=== PATIENT | female | born 1960 | race Hispanic/Latino ===

== ENCOUNTER 2020-09-01 22:58 | Inpatient (IN) | payer OTHER ==
[~2020-09-01] VITALS: Ht 160 cm; Wt 73.6 kg
[2020-09-02] VITALS (10 sets, daily range): BP systolic 87–140; BP diastolic 45–85
[2020-09-02] MEDS: METRONIDAZOLE 500 MG TAB PO SCH ×4 (00:37→17:35)
[2020-09-02] MEDS: SODIUM CHLORIDE 0.45% 1,000 ML IV SCH ×2 (00:37→14:33)
[2020-09-02] MEDS ORDERED: ACETAMINOPHEN 325 MG TAB PO PRN (03:00)
[2020-09-02] MEDS ORDERED: LEVOTHYROXINE100 MC1 PO (04:54)
[2020-09-02] MEDS ORDERED: GLIPIZIDE5 MG PO (04:54)
[2020-09-02] MEDS ORDERED: METFORMIN HCL1000 MG PO (04:54)
[2020-09-02 05:12] LABS: BASOPHILS # (AUTO) 0.1 (0.0-0.1); BASOPHILS % 0.7 % (0.0-1.0); EOSINOPHILS # (AUTO) 0.1 (0.0-0.4); EOSINOPHILS % 0.5 % (0.0-6.0); HEMATOCRIT 41.8 % (34.2-44.1); HEMOGLOBIN 13.9 g/dL (12.0-16.0); LYMPHOCYTES % 5.1 % (18.0-39.1); MEAN CORPUSCULAR HEMOGLOBIN 29.5 pg (28-32); MEAN CORPUSCULAR HGB CONC 33.3 g/dL (31-35); MEAN CORPUSCULAR VOLUME 88.7 fL (81-99); MONOCYTES % 10.6 % (4.4-11.3); NEUTROPHILS # (AUTO) 14.9 (2.1-6.9); NEUTROPHILS % 80.3 % (38.7-80.0); PLATELET COUNT 228 x10e3/uL (140-360); RED BLOOD COUNT 4.71 x10e6/uL (3.6-5.1); RED CELL DISTRIBUTION WIDTH 13.3 % (11.7-14.4)
[2020-09-02 05:53] LABS: ALANINE AMINOTRANSFERASE 16 IU/L (0-55); ALBUMIN/GLOBULIN RATIO 0.3 (0.8-2.0); ALKALINE PHOSPHATASE 136 IU/L (40-150); ANION GAP 16.4 mmol/L (8-16); BLOOD UREA NITROGEN 15 mg/dL (7-26); BUN/CREATININE RATIO 22 (6-25); CALCIUM 7.1 mg/dL (8.4-10.2); CARBON DIOXIDE 17 mmol/L (22-29); CHLORIDE 99 mmol/L (98-107); CREATININE, SERUM 0.68 mg/dL (0.57-1.11); EST GLOMERULAR FILTRATION RATE > 60 ML/MIN (60-); POTASSIUM 4.4 mmol/L (3.5-5.1); SODIUM 128 mmol/L (136-145)
[2020-09-02] MEDS ORDERED: DEXTROSE 50% SYRINGE 50 ML IV ONE (06:06)
[2020-09-02 06:07] LABS: GLUCOSE 44 mg/dL (74-118)
[2020-09-02] MEDS: DICYCLOMINE HCL 20 MG TAB PO SCH ×3 (07:00→17:35)
[2020-09-02 07:26] LABS: BAND NEUTROPHILS % (MANUAL) 2 %; EOSINOPHILS % (MANUAL) 1 % (0-7); LYMPHOCYTES % (MANUAL) 3 % (19-48); MONOCYTES % (MANUAL) 17 % (3.4-9.0); NEUTROPHILS % (MANUAL) 76 % (40-74); PLATELET ESTIMATE ADEQUATE; PLATELET MORPHOLOGY COMMENT NORMAL; RBC MORPHOLOGY COMMENT NORMAL
[2020-09-02] MEDS: CEFTRIAXONE SOD 1 GM/NS 50 ML 50 ML IV SCH (17:35)
[2020-09-02] MEDS: LACTOBACILLUS ACIDOPHILUS CAPSULE PO SCH (17:35)
[2020-09-02] MEDS ORDERED: ONDANSETRON HCL INJ 2MG/ML 2ML 2 MG/ML VIAL IV PRN ×2 (17:45→20:45)
[2020-09-02 18:15] LABS: BASOPHILS % 0.1 % (0.0-1.0); EOSINOPHILS % 0.2 % (0.0-6.0); HEMATOCRIT 42.2 % (34.2-44.1); LYMPHOCYTES # (AUTO) 0.8 (1.0-3.2); MEAN CORPUSCULAR HEMOGLOBIN 29.7 pg (28-32); MEAN CORPUSCULAR HGB CONC 33.2 g/dL (31-35); MEAN CORPUSCULAR VOLUME 89.4 fL (81-99); MONOCYTES # (AUTO) 1.6 (0.2-0.8); MONOCYTES % 8.6 % (4.4-11.3); NEUTROPHILS # (AUTO) 15.8 (2.1-6.9); NEUTROPHILS % 83.6 % (38.7-80.0); PLATELET COUNT 199 x10e3/uL (140-360); RED BLOOD COUNT 4.72 x10e6/uL (3.6-5.1); RED CELL DISTRIBUTION WIDTH 13.2 % (11.7-14.4)
[2020-09-02 18:36] LABS: ALANINE AMINOTRANSFERASE 18 IU/L (0-55); ALBUMIN/GLOBULIN RATIO 0.3 (0.8-2.0); ALKALINE PHOSPHATASE 160 IU/L (40-150); ANION GAP 13.6 mmol/L (8-16); BLOOD UREA NITROGEN 11 mg/dL (7-26); BUN/CREATININE RATIO 17 (6-25); CALCIUM 7.2 mg/dL (8.4-10.2); CARBON DIOXIDE 16 mmol/L (22-29); CHLORIDE 98 mmol/L (98-107); CREATINE KINASE 32 IU/L (29-168); CREATININE, SERUM 0.64 mg/dL (0.57-1.11); EST GLOMERULAR FILTRATION RATE > 60 ML/MIN (60-); GLUCOSE 173 mg/dL (74-118); POTASSIUM 4.6 mmol/L (3.5-5.1); SODIUM 123 mmol/L (136-145)
[2020-09-02] MEDS ORDERED: METRONIDAZOLE 500 MG TAB PO SCH (22:00)
[2020-09-03] VITALS (7 sets, daily range): BP systolic 104–130; BP diastolic 46–66
[2020-09-03] MEDS ORDERED: VANCOMYCIN 250MG/5ML ORAL SOLN PO SCH
[2020-09-03] MEDS ORDERED: CEFTRIAXONE SOD 1 GM/NS 50 ML 50 ML IV SCH
[2020-09-03] MEDS: DICYCLOMINE HCL 20 MG TAB PO SCH ×4 (01:57→16:58)
[2020-09-03] MEDS ORDERED: METRONIDAZOLE 500MG/NS 100ML 100 ML IV SCH (04:30)
[2020-09-03 05:13] LABS: BASOPHILS % 0.1 % (0.0-1.0); EOSINOPHILS % 0.2 % (0.0-6.0); HEMATOCRIT 43.6 % (34.2-44.1); HEMOGLOBIN 14.6 g/dL (12.0-16.0); LYMPHOCYTES # (AUTO) 0.9 (1.0-3.2); LYMPHOCYTES % 4.5 % (18.0-39.1); MEAN CORPUSCULAR HEMOGLOBIN 29.4 pg (28-32); MEAN CORPUSCULAR HGB CONC 33.5 g/dL (31-35); MEAN CORPUSCULAR VOLUME 87.9 fL (81-99); MONOCYTES # (AUTO) 1.4 (0.2-0.8); NEUTROPHILS # (AUTO) 16.4 (2.1-6.9); NEUTROPHILS % 82.4 % (38.7-80.0); PLATELET COUNT 201 x10e3/uL (140-360); RED BLOOD COUNT 4.96 x10e6/uL (3.6-5.1); RED CELL DISTRIBUTION WIDTH 13.1 % (11.7-14.4)
[2020-09-03 05:30] LABS: ANION GAP 14.6 mmol/L (8-16); BLOOD UREA NITROGEN 10 mg/dL (7-26); BUN/CREATININE RATIO 16 (6-25); CALCIUM 7.4 mg/dL (8.4-10.2); CARBON DIOXIDE 17 mmol/L (22-29); CHLORIDE 97 mmol/L (98-107); CREATININE, SERUM 0.61 mg/dL (0.57-1.11); EST GLOMERULAR FILTRATION RATE > 60 ML/MIN (60-); GLUCOSE 70 mg/dL (74-118); MAGNESIUM 2.1 MG/DL (1.3-2.1); POTASSIUM 4.6 mmol/L (3.5-5.1); SODIUM 124 mmol/L (136-145)
[2020-09-03] MEDS: SODIUM CHLORIDE 0.45% 1,000 ML IV SCH ×2 (06:48→16:58)
[2020-09-03] MEDS: CEFTRIAXONE SOD 1 GM/NS 50 ML 50 ML IV SCH ×2 (06:49→16:58)
[2020-09-03] MEDS: VANCOMYCIN 250MG/5ML ORAL SOLN PO SCH ×3 (06:49→16:58)
[2020-09-03 07:48] LABS: EOSINOPHILS % (MANUAL) 1 % (0-7); LYMPHOCYTES % (MANUAL) 7 % (19-48); MONOCYTES % (MANUAL) 6 % (3.4-9.0); NEUTROPHILS % (MANUAL) 85 % (40-74); NUCLEATED RED BLOOD CELLS 1; RBC MORPHOLOGY COMMENT NORMAL
[2020-09-03 07:49] LABS: PLATELET ESTIMATE ADEQUATE; PLATELET MORPHOLOGY COMMENT NORMAL
[2020-09-03] MEDS: LACTOBACILLUS ACIDOPHILUS CAPSULE PO SCH ×2 (09:06→16:58)
[2020-09-03] MEDS: METRONIDAZOLE 500MG/NS 100ML 100 ML IV SCH ×3 (09:06→21:04)
[2020-09-03] MEDS ORDERED: SODIUM PHOSPHATE IN 0.9 % NACL 15 MMOL in SODIUM CHLORIDE 0.9% 250ML 250 ML IV ONE ×2 (18:35)
[2020-09-03] MEDS ORDERED: DEXTROSE 50% SYRINGE 50 ML IV PRN (19:00)
[2020-09-03] MEDS: INSULIN REGULAR, HUMAN 100 UNIT/1 ML 3ML VIAL SQ SCH (21:00)
[2020-09-03] MEDS: SODIUM CHLORIDE 0.9% 1000ML 1,000 ML IV SCH (21:04)
[2020-09-04] VITALS (8 sets, daily range): BP systolic 108–127; BP diastolic 56–74
[2020-09-04] MEDS: VANCOMYCIN 250MG/5ML ORAL SOLN PO SCH ×4 (01:04→18:27)
[2020-09-04] MEDS: DICYCLOMINE HCL 20 MG TAB PO SCH ×4 (01:04→18:27)
[2020-09-04] MEDS: METRONIDAZOLE 500MG/NS 100ML 100 ML IV SCH ×4 (03:23→20:49)
[2020-09-04] MEDS: CEFTRIAXONE SOD 1 GM/NS 50 ML 50 ML IV SCH ×2 (05:22→17:09)
[2020-09-04] MEDS: SODIUM CHLORIDE 0.9% 1000ML 1,000 ML IV SCH ×2 (05:22→17:09)
[2020-09-04] MEDS ORDERED: ALBUMIN 25% 25GM 100ML 0.25 GM/ML BTL IV SCH ×2 (06:00)
[2020-09-04 06:10] LABS: EOSINOPHILS % 0.6 % (0.0-6.0); HEMATOCRIT 40.4 % (34.2-44.1); HEMOGLOBIN 13.4 g/dL (12.0-16.0); LYMPHOCYTES % 4.2 % (18.0-39.1); MEAN CORPUSCULAR HEMOGLOBIN 29.2 pg (28-32); MEAN CORPUSCULAR HGB CONC 33.2 g/dL (31-35); NEUTROPHILS % 83.4 % (38.7-80.0); PLATELET COUNT 172 x10e3/uL (140-360); RED BLOOD COUNT 4.59 x10e6/uL (3.6-5.1); RED CELL DISTRIBUTION WIDTH 13.3 % (11.7-14.4)
[2020-09-04 06:11] LABS: EOSINOPHILS # (AUTO) 0.1 (0.0-0.4); LYMPHOCYTES # (AUTO) 0.8 (1.0-3.2); MONOCYTES # (AUTO) 1.2 (0.2-0.8); NEUTROPHILS # (AUTO) 16.2 (2.1-6.9)
[2020-09-04 06:33] LABS: ANION GAP 11.4 mmol/L (8-16); BLOOD UREA NITROGEN 8 mg/dL (7-26); BUN/CREATININE RATIO 15 (6-25); CALCIUM 7.1 mg/dL (8.4-10.2); CARBON DIOXIDE 19 mmol/L (22-29); CHLORIDE 100 mmol/L (98-107); CREATININE, SERUM 0.54 mg/dL (0.57-1.11); EST GLOMERULAR FILTRATION RATE > 60 ML/MIN (60-); GLUCOSE 122 mg/dL (74-118); POTASSIUM 4.4 mmol/L (3.5-5.1); SODIUM 126 mmol/L (136-145)
[2020-09-04 07:56] LABS: LYMPHOCYTES % (MANUAL) 2 % (19-48); MONOCYTES % (MANUAL) 7 % (3.4-9.0); NEUTROPHILS % (MANUAL) 91 % (40-74)
[2020-09-04 07:57] LABS: RBC MORPHOLOGY COMMENT NORMAL; TOXIC GRANULATION SLIGHT
[2020-09-04 07:58] LABS: PLATELET ESTIMATE ADEQUATE; PLATELET MORPHOLOGY COMMENT NORMAL
[2020-09-04] MEDS: LACTOBACILLUS ACIDOPHILUS CAPSULE PO SCH ×2 (09:41→17:09)
[2020-09-04] MEDS: SODIUM CHLORIDE 1 GM TAB PO SCH ×2 (09:41→17:09)
[2020-09-04] MEDS: INSULIN REGULAR, HUMAN 100 UNIT/1 ML 3ML VIAL SQ SCH ×4 (09:42→21:00)
[2020-09-04] MEDS: ALBUMIN 25% 25GM 100ML 0.25 GM/ML BTL IV SCH ×3 (11:22→18:27)
[2020-09-04] MEDS: BENZONATATE 100 MG CAP PO PRN ×2 (12:47→21:00)
[2020-09-05] MEDS: DICYCLOMINE HCL 20 MG TAB PO SCH ×4 (00:25→17:31)
[2020-09-05] MEDS: VANCOMYCIN 250MG/5ML ORAL SOLN PO SCH ×4 (00:25→17:32)
[2020-09-05] MEDS ORDERED: ALBUMIN 25% 12.5GM 0.25 GM/ML BTL IV ONE ×2 (01:45→02:15)
[2020-09-05] MEDS: METRONIDAZOLE 500MG/NS 100ML 100 ML IV SCH ×4 (02:08→21:00)
[2020-09-05] MEDS: CEFTRIAXONE SOD 1 GM/NS 50 ML 50 ML IV SCH ×2 (04:21→17:31)
[2020-09-05 06:29] LABS: BASOPHILS # (AUTO) 0.1 (0.0-0.1); BASOPHILS % 0.5 % (0.0-1.0); EOSINOPHILS # (AUTO) 0.2 (0.0-0.4); EOSINOPHILS % 1.2 % (0.0-6.0); HEMATOCRIT 33.5 % (34.2-44.1); LYMPHOCYTES # (AUTO) 0.9 (1.0-3.2); LYMPHOCYTES % 6.8 % (18.0-39.1); MEAN CORPUSCULAR HEMOGLOBIN 29.2 pg (28-32); MEAN CORPUSCULAR HGB CONC 32.8 g/dL (31-35); MEAN CORPUSCULAR VOLUME 88.9 fL (81-99); MONOCYTES # (AUTO) 0.8 (0.2-0.8); MONOCYTES % 5.7 % (4.4-11.3); NEUTROPHILS # (AUTO) 10.7 (2.1-6.9); NEUTROPHILS % 80.9 % (38.7-80.0); PLATELET COUNT 137 x10e3/uL (140-360); RED BLOOD COUNT 3.77 x10e6/uL (3.6-5.1); RED CELL DISTRIBUTION WIDTH 13.9 % (11.7-14.4)
[2020-09-05 06:59] LABS: BLOOD UREA NITROGEN 7 mg/dL (7-26); BUN/CREATININE RATIO 12 (6-25); CALCIUM 7.7 mg/dL (8.4-10.2); CARBON DIOXIDE 20 mmol/L (22-29); CHLORIDE 104 mmol/L (98-107); EST GLOMERULAR FILTRATION RATE > 60 ML/MIN (60-); GLUCOSE 118 mg/dL (74-118); PHOSPHORUS 1.3 MG/DL (2.3-4.7); SODIUM 133 mmol/L (136-145)
[2020-09-05] MEDS ORDERED: SODIUM PHOSPHATE IN 0.9 % NACL 15 MMOL in SODIUM CHLORIDE 0.9% 250ML 250 ML IV ONE ×2 (07:15)
[2020-09-05] MEDS: SODIUM CHLORIDE 0.9% 1000ML 1,000 ML IV SCH ×2 (07:36→19:23)
[2020-09-05 08:00] VITALS: BP 134/71
[2020-09-05] MEDS: INSULIN REGULAR, HUMAN 100 UNIT/1 ML 3ML VIAL SQ SCH ×4 (09:15→21:00)
[2020-09-05] MEDS: LACTOBACILLUS ACIDOPHILUS CAPSULE PO SCH ×2 (09:15→17:31)
[2020-09-05] MEDS: SODIUM CHLORIDE 1 GM TAB PO SCH ×2 (09:15→17:32)
[2020-09-05 12:19] VITALS: BP 135/68
[2020-09-05 17:38] VITALS: BP 137/68
[2020-09-05 20:00] VITALS: BP 132/73
[2020-09-05 21:00] VITALS: BP 132/73
[2020-09-06] VITALS (8 sets, daily range): BP systolic 113–139; BP diastolic 64–79
[2020-09-06] MEDS: DICYCLOMINE HCL 20 MG TAB PO SCH ×5 (00:30→23:34)
[2020-09-06] MEDS: VANCOMYCIN 250MG/5ML ORAL SOLN PO SCH ×5 (00:30→23:34)
[2020-09-06] MEDS: METRONIDAZOLE 500MG/NS 100ML 100 ML IV SCH ×4 (02:30→21:03)
[2020-09-06] MEDS: CEFTRIAXONE SOD 1 GM/NS 50 ML 50 ML IV SCH ×2 (04:00→15:37)
[2020-09-06] MEDS ORDERED: DIPHENOXYLATE/ATROPINE TAB PO ONE (05:00)
[2020-09-06 06:10] LABS: BASOPHILS # (AUTO) 0.1 (0.0-0.1); BASOPHILS % 0.7 % (0.0-1.0); EOSINOPHILS # (AUTO) 0.2 (0.0-0.4); EOSINOPHILS % 1.5 % (0.0-6.0); HEMATOCRIT 36.2 % (34.2-44.1); HEMOGLOBIN 11.8 g/dL (12.0-16.0); LYMPHOCYTES # (AUTO) 0.9 (1.0-3.2); LYMPHOCYTES % 8.4 % (18.0-39.1); MEAN CORPUSCULAR HGB CONC 32.6 g/dL (31-35); MEAN CORPUSCULAR VOLUME 88.9 fL (81-99); MONOCYTES # (AUTO) 0.8 (0.2-0.8); MONOCYTES % 7.5 % (4.4-11.3); NEUTROPHILS % 75.9 % (38.7-80.0); PLATELET COUNT 123 x10e3/uL (140-360); RED BLOOD COUNT 4.07 x10e6/uL (3.6-5.1); RED CELL DISTRIBUTION WIDTH 14.3 % (11.7-14.4)
[2020-09-06 06:48] LABS: ANION GAP 15.6 mmol/L (8-16); BLOOD UREA NITROGEN 11 mg/dL (7-26); BUN/CREATININE RATIO 21 (6-25); CALCIUM 7.4 mg/dL (8.4-10.2); CARBON DIOXIDE 20 mmol/L (22-29); CHLORIDE 103 mmol/L (98-107); CREATININE, SERUM 0.53 mg/dL (0.57-1.11); EST GLOMERULAR FILTRATION RATE > 60 ML/MIN (60-); GLUCOSE 189 mg/dL (74-118); MAGNESIUM 1.9 MG/DL (1.3-2.1); PHOSPHORUS 2.4 MG/DL (2.3-4.7); POTASSIUM 3.6 mmol/L (3.5-5.1); SODIUM 135 mmol/L (136-145)
[2020-09-06 07:15] LABS: % IRON SATURATION 50 % (15-50); IRON 57 ug/dL (50-170); TOTAL IRON BINDING CAPACITY 115 ug/dL (261-478); TRANSFERRIN 82 mg/dL (180-382)
[2020-09-06] MEDS: SODIUM CHLORIDE 0.9% 1000ML 1,000 ML IV SCH (08:36)
[2020-09-06] MEDS: LACTOBACILLUS ACIDOPHILUS CAPSULE PO SCH ×2 (08:36→17:46)
[2020-09-06] MEDS: SODIUM CHLORIDE 1 GM TAB PO SCH ×2 (08:36→17:46)
[2020-09-06] MEDS: INSULIN REGULAR, HUMAN 100 UNIT/1 ML 3ML VIAL SQ SCH ×4 (08:38→20:51)
[2020-09-07] VITALS: BP 135/75
[2020-09-07] MEDS: BENZONATATE 100 MG CAP PO PRN (00:10)
[2020-09-07] MEDS: METRONIDAZOLE 500MG/NS 100ML 100 ML IV SCH ×2 (02:23→08:39)
[2020-09-07 04:00] VITALS: BP 125/69
[2020-09-07] MEDS: CEFTRIAXONE SOD 1 GM/NS 50 ML 50 ML IV SCH (05:08)
[2020-09-07] MEDS: DICYCLOMINE HCL 20 MG TAB PO SCH ×2 (05:08→12:10)
[2020-09-07] MEDS: VANCOMYCIN 250MG/5ML ORAL SOLN PO SCH ×2 (05:08→12:10)
[2020-09-07 06:17] LABS: BASOPHILS # (AUTO) 0.1 (0.0-0.1); BASOPHILS % 0.6 % (0.0-1.0); EOSINOPHILS # (AUTO) 0.3 (0.0-0.4); HEMATOCRIT 37.6 % (34.2-44.1); HEMOGLOBIN 12.2 g/dL (12.0-16.0); LYMPHOCYTES % 10.6 % (18.0-39.1); MEAN CORPUSCULAR HGB CONC 32.4 g/dL (31-35); MEAN CORPUSCULAR VOLUME 89.3 fL (81-99); MONOCYTES # (AUTO) 0.7 (0.2-0.8); MONOCYTES % 7.2 % (4.4-11.3); NEUTROPHILS # (AUTO) 6.9 (2.1-6.9); NEUTROPHILS % 73.2 % (38.7-80.0); PLATELET COUNT 124 x10e3/uL (140-360); RED BLOOD COUNT 4.21 x10e6/uL (3.6-5.1); RED CELL DISTRIBUTION WIDTH 14.6 % (11.7-14.4)
[2020-09-07 06:54] LABS: ANION GAP 13.9 mmol/L (8-16); BLOOD UREA NITROGEN 11 mg/dL (7-26); BUN/CREATININE RATIO 20 (6-25); CALCIUM 7.3 mg/dL (8.4-10.2); CARBON DIOXIDE 21 mmol/L (22-29); CHLORIDE 103 mmol/L (98-107); CREATININE, SERUM 0.54 mg/dL (0.57-1.11); EST GLOMERULAR FILTRATION RATE > 60 ML/MIN (60-); GLUCOSE 196 mg/dL (74-118); POTASSIUM 3.9 mmol/L (3.5-5.1); SODIUM 134 mmol/L (136-145)
[2020-09-07 07:28] VITALS: BP 112/68
[2020-09-07] MEDS: SODIUM CHLORIDE 0.9% 1000ML 1,000 ML IV SCH ×2 (07:30→10:43)
[2020-09-07 07:55] VITALS: BP 112/68
[2020-09-07] MEDS: INSULIN REGULAR, HUMAN 100 UNIT/1 ML 3ML VIAL SQ SCH ×2 (08:30→12:01)
[2020-09-07] MEDS: LACTOBACILLUS ACIDOPHILUS CAPSULE PO SCH (08:39)
[2020-09-07] MEDS: SODIUM CHLORIDE 1 GM TAB PO SCH (08:39)
[2020-09-07 09:45] LABS: PLATELET ESTIMATE MODERATELY DECREASED; PLATELET MORPHOLOGY COMMENT NORMAL
[2020-09-07] MEDS ORDERED: Lactobacillus Acidophilus PO (11:08)
[2020-09-07] MEDS ORDERED: VANCOCIN HCL250 MG PO (11:08)
[2020-09-07] MEDS ORDERED: PROVENTIL HFA6.7 GM INH (11:08)
[2020-09-07] MEDS ORDERED: DICYCLOMINE HCL20 MG PO (11:08)
[2020-09-07] MEDS ORDERED: METRONIDAZOLE500 MG PO (11:08)
[2020-09-07 11:52] VITALS: BP 141/75
== END 2020-09-07 12:40 | disposition home health service (06) | DRG 371 ==
LOC: MED/SURG2 22:58
PROVIDERS: ADMIT Internal Medicine; ATTEND Internal Medicine
DX: A04.72 Enterocolitis due to Clostridium difficile, not specified as recurrent (principal); J18.9 Pneumonia, unspecified organism; E87.1 Hypo-osmolality and hyponatremia; E11.9 Type 2 diabetes mellitus without complications; E03.9 Hypothyroidism, unspecified; Z20.822 Contact with and (suspected) exposure to COVID-19; E83.39 Other disorders of phosphorus metabolism; Z86.16 Personal history of COVID-19; R00.0 Tachycardia, unspecified; E86.0 Dehydration
CPT/HCPCS: 36415; 71045; 71046; 80048; 80053; 82550; 82553; 82607; 82746; 82948; 83540; 83735; 84100; 84466; 84484; 85025; 85045; 85379; 87493; 93306; 96361; 96372; 97139; J0696; J1817; J2405; J7030; J7050; J7799; P9047

== ENCOUNTER → 2020-10-07 | Day surgery (SDC) | payer OTHER ==
[~2020-10-07] MED LIST: DICYCLOMINE HCL20 MG PO; GLIPIZIDE5 MG PO; LEVOTHYROXINE100 MC1 PO; LIDOCAINE HCL 2% LOCAL INJ 5 ML SDV VIAL INJ ONE; Lactobacillus Acidophilus PO; METFORMIN HCL1000 MG PO; METRONIDAZOLE500 MG PO; MIDAZOLAM HCL 2 MG/2 ML VIAL ONE; PROPOFOL IV EMULSION 10 MG/ML 20 ML VIAL ONE; PROVENTIL HFA6.7 GM INH; VANCOCIN HCL250 MG PO
[2020-10-07 14:35] VITALS: BP 112/59
== END | disposition home or self-care (01) ==
LOC: OR 10:41
PROVIDERS: ATTEND Internal Medicine Gastroenterology
DX: K51.90 Ulcerative colitis, unspecified, without complications (principal); K64.8 Other hemorrhoids; E11.9 Type 2 diabetes mellitus without complications; B96.89 Other specified bacterial agents as the cause of diseases classified elsewhere; Z01.812 Encounter for preprocedural laboratory examination; Z20.822 Contact with and (suspected) exposure to COVID-19; Z79.84 Long term (current) use of oral hypoglycemic drugs
CPT/HCPCS: 36415; 45380; 82948; 87493; J2001; J2250; J2704; U0002; 45378